=== PATIENT | male | born 1955 | race African-American/Black ===

== ENCOUNTER 2019-03-31 14:18 | Emergency (ER) | payer OTHER ==
--- NOTE | 2019-03-31 17:42 | ED ---
Head Injury - HPI Summary HPI Summary: 64-year-old male presents with head injury today. He states he slipped and fell today. Has a laceration noted to the left side of head. Areas continues to bleed. patient had become agitated in the room. When went into see patient, he states he wants to leave. Is alert and oriented and able to make his own decisions. He states he wants go back to the [facility]. Offered to do a suture repair and patient declined. - History Of Current Complaint Chief Complaint: EDHeadInjury Stated Complaint: ALTERCATION PER PT Time Seen by Provider: 03/31/19 17:38 Pain Intensity: 0 - Allergies/Home Medications Allergies/Adverse Reactions: Allergies Allergy/AdvReac Type Severity Reaction Status Date / Time No Known Allergies Allergy Verified 03/31/19 14:25 Home Medications: Home Medications Aspirin 81 mg CHEW TAB* [Aspirin Low Dose TAB*] 81 mg PO DAILY 03/31/19 [ History Confirmed 03/31/19] Atorvastatin* [Lipitor*] 20 mg PO QPM 03/31/19 [History Confirmed 03/31/19] Loratadine [Claritin] 10 mg PO DAILY 03/31/19 [History Confirmed 03/31/19] amLODIPine TAB* [Norvasc 5 mg TAB*] 10 mg PO DAILY 03/31/19 [History Confirmed 03/31/19] metFORMIN* [Glucophage 1000 MG TAB *] 1,000 mg PO DAILY 03/31/19 [History Confirmed 03/31/19] PMH/Surg Hx/FS Hx/Imm Hx Endocrine/Hematology History: Denies: Hx Anticoagulant Therapy Infectious Disease History: No Infectious Disease History: Denies: Traveled Outside the [place] in Last 30 Days - Family History Known Family History: Positive: Non-Contributory - Social History Alcohol Use: None Substance Use Type: Reports: None Smoking Status (MU): Heavy Every Day Tobacco Smoker Review of Systems Negative: Fever Positive: Other - laceration scalp All Other Systems Reviewed And Are Negative: Yes Physical Exam Triage Information Reviewed: Yes Vital Signs On Initial Exam: Initial Vitals Temp Pulse Resp BP Pulse Ox 98.1 F 111 16 162/108 98 03/31/19 14:21 03/31/19 14:21 03/31/19 14:21 03/31/19 14:21 03/31/19 14:21 Vital Signs Reviewed: Yes Appearance: Positive: Well-Appearing Skin: Positive: Warm, Dry, Other - laceration to left side scalp Eyes: Positive: Conjunctiva Clear ENT: Positive: Other - speech normal Respiratory/Lung Sounds: Positive: Other - breathing unlabored Musculoskeletal: Positive: Strength/ROM Intact - arms and legs Neurological: Positive: Sensory/Motor Intact, Alert, Oriented to Person Place, Time Psychiatric: Positive: Normal Diagnostics - Vital Signs Vital Signs Temp Pulse Resp BP Pulse Ox 03/31/19 16:22 97.4 F 03/31/19 16:21 80 99 03/31/19 16:20 81 150/94 99 03/31/19 16:11 97.9 F 82 16 132/85 97 03/31/19 14:21 98.1 F 111 16 162/108 98 - Laboratory Lab Statement: Any lab studies that have been ordered have been reviewed, and results considered in the medical decision making process. Head Injury Course/Dx Course Of Treatment: 64-year-old male presents with head injury today. He states he slipped and fell today. Has a laceration noted to the left side of head. Areas continues to bleed. patient had become agitated in the room. When went into see patient, he states he wants to leave. Is alert and oriented and able to make his own decisions. He states he wants go back to the [facility]. Offered to do a suture repair and patient declined. On exam has a laceration noted to left side of forehead. Patient declined bandage on the area or wound closure. Wants to return home. Is able to make his own decisions. Patient then proceeded to elope with help of [facility]. - Diagnoses Differential Diagnosis/HQI/PQRI: Concussion Without LOC, Contusion, Laceration Provider Diagnoses: Encounter for medical screening examination Discharge ED - Sign-Out/Discharge Documenting (check all that apply): Patient Departure - Discharge Plan Condition: Stable Disposition: ELOPEMENT Referrals: Joseph JAY,Javier Vigil [Primary Care Provider] - - Billing Disposition and Condition Condition: STABLE Disposition: Elopement
[2019-03-31 17:47] VITALS: BP 159/98
== END 2019-03-31 17:46 | disposition left against medical advice (07) ==
LOC: ED 14:18
DX: Z00.00 Encounter for general adult medical examination without abnormal findings (principal); W01.0XXA Fall on same level from slipping, tripping and stumbling without subsequent striking against object, initial encounter; Y92.9 Unspecified place or not applicable; Z79.82 Long term (current) use of aspirin; Z79.84 Long term (current) use of oral hypoglycemic drugs; Z79.899 Other long term (current) drug therapy; F17.200 Nicotine dependence, unspecified, uncomplicated
CPT/HCPCS: 99282